=== PATIENT | female | born 1965 | race African-American/Black ===

== ENCOUNTER 2021-08-22 07:15 | Outpatient (CLI) | payer OTHER | END 2021-08-22 07:16 | disposition home or self-care (01) | LOC: CSHLAB 07:15 | PROVIDERS: ATTEND Internal Medicine Gastroenterology | DX: Z20.822 Contact with and (suspected) exposure to COVID-19 (principal); K63.5 Polyp of colon | CPT/HCPCS: 87811 ==

== ENCOUNTER 2021-08-24 09:27 | Day surgery (SDC) | payer OTHER ==
[2021-08-23 09:57] VITALS: BMI 38.9
[2021-08-24] MEDS ORDERED: PROPOFOL 40 ML ONE (11:26)
== END 2021-08-24 12:30 | disposition home or self-care (01) ==
LOC: CSHSDC 09:27
PROVIDERS: ATTEND Internal Medicine Gastroenterology
PROC: 0DJD8ZZ Inspection of Lower Intestinal Tract, Via Natural or Artificial Opening Endoscopic (ICD-10-PCS; principal; 2021-08-24)
DX: Z12.11 Encounter for screening for malignant neoplasm of colon (principal); K57.30 Diverticulosis of large intestine without perforation or abscess without bleeding; K64.9 Unspecified hemorrhoids; K62.89 Other specified diseases of anus and rectum; Z86.010 Personal history of colon polyps; Z80.0 Family history of malignant neoplasm of digestive organs; I10 Essential (primary) hypertension; E78.5 Hyperlipidemia, unspecified; R73.03 Prediabetes; G56.00 Carpal tunnel syndrome, unspecified upper limb; E66.9 Obesity, unspecified; Z68.38 Body mass index [BMI] 38.0-38.9, adult; Z79.82 Long term (current) use of aspirin; Z79.84 Long term (current) use of oral hypoglycemic drugs; Z79.899 Other long term (current) drug therapy; Z20.822 Contact with and (suspected) exposure to COVID-19
CPT/HCPCS: J2704